=== PATIENT | female | born 1985 | race Caucasian/White ===

== ENCOUNTER 2016-12-15 18:21 | Inpatient (IN) | payer OTHER ==
[~2016-12-15] VITALS: Ht 165.1 cm; Wt 66.1 kg
[2016-12-15] VITALS (9 sets, daily range): BP systolic 94–121; BP diastolic 50–75
[2016-12-15] MEDS ORDERED: VALT500T PO (18:51)
[2016-12-15] MEDS ORDERED: PRENTAB9 PO (18:51)
[2016-12-15] MEDS ORDERED: LR 1,000 ML IV SCH (19:32)
[2016-12-15] MEDS ORDERED: LACTATED RINGER'S 1000 ML IV STA (19:32)
[2016-12-15] MEDS ORDERED: OXYTOCIN DRIP 30 UNITS in APPROPRIATE DILUENT 1 EA IV SCH (19:45)
[2016-12-15 20:46] LABS: MEAN CORPUSCULAR HEMOGLOBIN 31.8 pg (27.0-33.0); MEAN CORPUSCULAR HGB CONC 33.4 g/dl (32.0-36.5); MEAN CORPUSCULAR VOLUME 95.2 fl (80.0-96.0); PLATELET COUNT, AUTOMATED 190 10^3/uL (150-450); WHITE BLOOD COUNT 9.4 10^3/uL (4.0-10.0)
[2016-12-16] VITALS (86 sets, daily range): BP systolic 85–159; BP diastolic 50–77
[2016-12-16] MEDS: LR 1,000 ML IV SCH ×5 (03:32→19:32)
[2016-12-16] MEDS ORDERED: FENTANYL 2MCG/ML ROPIVACAINE 0.2% IN 0.9% NACL 200ML IVBAG As Ordered ONE (04:11)
[2016-12-16] MEDS ORDERED: diphenhydrAMINE INJ 50MG/ML VIAL (J1200) IV PRN (06:00)
[2016-12-16] MEDS ORDERED: EPIDURAL COMMENT XX SCH (06:00)
[2016-12-16] MEDS ORDERED: FENTANYL/ROPIVACAINE/NACL BAG 200 ML EPIDURAL SCH (06:00)
[2016-12-16] MEDS ORDERED: ONDANSETRON 4MG/2ML VIAL (J2405) IV PRN (06:00)
[2016-12-16] MEDS ORDERED: NALOXONE INJ 0.4 MG/1 ML VIAL (J2310) IV PRN (06:00)
[2016-12-16] MEDS ORDERED: LACTATED RINGER'S 1000 ML IV PRN (06:00)
[2016-12-16] MEDS ORDERED: REFRIGERATOR IV KEYS XX PRN (06:00)
[2016-12-16] MEDS ORDERED: ePHEDrine SULFATE 25 MG/5 ML(5MG/ML) SYRINGE IV PRN (06:00)
[2016-12-16] MEDS ORDERED: EPIDURAL/PCA KEYS XX PRN (06:00)
--- NOTE | 2016-12-16 09:46 | IPNPDOC ---
Text Note Date of Service The patient was seen on 12/16/16. NOTE I assumed care of Esther at 0830 this morning. She is a 31yo with SIUP at 41w1d undergoing IOL for LTG. When induction began yesterday she was 1/50/high. She has progressed on pitocin. Currently she is 5/-2. AROM performed with clear fluid noted. She is comfortable with epidural. Vitals wnl. Cat I FHRT, ctx q2-3min Will continue to titrate pitocin per protocol. Recheck in 2-4hr or earlier as indicated. Safe to proceed. VS,Fishbone, I+O VS, Fishbone, I+O Laboratory Tests 12/15/16 20:30 Red Blood Count 4.15, Mean Corpuscular Volume 95.2, Mean Corpuscular Hemoglobin 31.8, Mean Corpuscular Hemoglobin Concent 33.4, Red Cell Distribution Width 13.0 Vital Signs Date Time Temp Pulse Resp B/P (MAP) Pulse Ox O2 Delivery O2 Flow Rate FiO2 12/16/16 06:50 982.0 12/16/16 05:07 72 16 102/57 (72) I&O- Last 24 Hours up to 6 AM 12/17/16 06:00 Intake Total 1900 ml Output Total 400 ml Balance 1500 ml ADINA GARCIA MD Dec 16, 2016 09:46
--- NOTE | 2016-12-16 12:54 | IPNPDOC ---
Text Note Date of Service The patient was seen on 12/16/16. NOTE Patient comfortable with epidural. Vitals wnl. Cat I FHRT, toco ctx q2-3min SCE anterior lip/C/-1 Will recheck in 1-2hr and potentially begin pushing then Safe to proceed Dr. Adina Vargas MD VS,Marv, I+O VS, Marv, I+O Laboratory Tests 12/15/16 20:30 Red Blood Count 4.15, Mean Corpuscular Volume 95.2, Mean Corpuscular Hemoglobin 31.8, Mean Corpuscular Hemoglobin Concent 33.4, Red Cell Distribution Width 13.0 Vital Signs Date Time Temp Pulse Resp B/P (MAP) Pulse Ox O2 Delivery O2 Flow Rate FiO2 12/16/16 11:27 55 102/62 (75) 12/16/16 10:37 99.0 18 I&O- Last 24 Hours up to 6 AM 12/17/16 05:59 Intake Total 2900 ml Output Total 1200 ml Balance 1700 ml ADINA GARCIA MD Dec 16, 2016 12:54
--- NOTE | 2016-12-16 16:01 | IPNPDOC ---
Text Note Date of Service The patient was seen on 12/16/16. NOTE Patient comfortable with epidural C/C/0 at 2:20 when patient began pushing She is currently C/C/+2 with good pushing efforts Cat I FHRT Will continue pushing, anticipate Safe to proceed Dr. Adina Vargas MD VS,Marv, I+O VS, Marv, I+O Laboratory Tests 12/15/16 20:30 Red Blood Count 4.15, Mean Corpuscular Volume 95.2, Mean Corpuscular Hemoglobin 31.8, Mean Corpuscular Hemoglobin Concent 33.4, Red Cell Distribution Width 13.0 Vital Signs Date Time Temp Pulse Resp B/P (MAP) Pulse Ox O2 Delivery O2 Flow Rate FiO2 12/16/16 11:27 55 102/62 (75) 12/16/16 10:37 99.0 18 I&O- Last 24 Hours up to 6 AM 12/17/16 06:00 Intake Total 2900 ml Output Total 1200 ml Balance 1700 ml ADINA GARCIA MD Dec 16, 2016 16:01
[2016-12-16] MEDS ORDERED: OXYTOCIN DRIP 30 UNITS in APPROPRIATE DILUENT 1 EA IV SCH (17:53)
[2016-12-16] MEDS ORDERED: DIBUCAINE 1% OINTMENT 30GM TOP PRN (18:00)
[2016-12-16] MEDS ORDERED: ACETAMINOPHEN 500 MG TAB PO PRN (18:00)
[2016-12-16] MEDS ORDERED: MEASLES,MUMPS,RUBELLA VACCINE INJ (MMR-II) (90707) SC SCH (18:00)
[2016-12-16] MEDS ORDERED: RHOGAM 300 MCG (1500 IU) INJ (J2790) IM SCH (18:00)
--- NOTE | 2016-12-16 18:08 | DNPDOC ---
[facility] Delivery Note Delivery Note DATE OF DELIVERY: 12/16/16 PREDELIVERY DIAGNOSIS: 41w1d induction of labor for late term gestation POST DELIVERY DIAGNOSIS: Delivered. PROCEDURE: Spontaneous vaginal delivery FELLER SEAM OPERATOR: Dr. Adina Vargas MD ANESTHESIA: epidural ESTIMATED BLOOD LOSS: 350 mL. FINDINGS: 7 pound 7 ounce (3380g) female , Score 9/10, nuchal cord times . DELIVERY SUMMARY: Esther is a 31yo [id number] s/p uncomplicated at 41w1d after undergoing uneventful induction of labor for late term gestation. She received epidural and reached C/C/0 at which point she began pushing. head delivered OA, restituted RERE. Left anterior shoulder delivered followed by posterior shoulder and corpus. Infant vigorous with spontaneous cry, placed on maternal chest. Apgars 9/10. After approximately 1 minute, cord clamped x2 and cut by FOB. With uterine massage and traction on umbilical cord, placenta delivered spontaneously , intact with 3 vessel cord. Uterine massage performed again. Pitocin given per protocol. Inspection of perineum and vagina revealed a 2mll with skin extension down to just outside the rectum (anal sphincter completely intact- sterile glove placed over existing glove to inspect rectum and no defect of rectum noted ), also a left labial laceration. Lacerations repaired in routine fashion using 0 and 3-0 vicryl suture. Total hemostasis ensured. EBL 350ml. 800mcg cytotec placed rectally for prophylaxis against bleeding. Mom and in stable condition. ADINA GARCIA MD Dec 16, 2016 18:08
[2016-12-16] MEDS ORDERED: miSOPROStol 200 MCG TAB (S0191) PR ONE (18:15)
[2016-12-16] MEDS: IBUPROFEN 800 MG TAB PO PRN (18:50)
[2016-12-16] MEDS: DOCUSATE SODIUM 100 MG CAP PO SCH (20:51)
[2016-12-17] MEDS: LR 1,000 ML IV SCH ×2 (03:32→11:32)
[2016-12-17 06:12] VITALS: BP 105/63
[2016-12-17] MEDS: IBUPROFEN 800 MG TAB PO PRN ×2 (07:45→20:06)
[2016-12-17] MEDS: PRENATAL VITAMINS CHEWABLE TABLET PO SCH (07:45)
[2016-12-17] MEDS: DOCUSATE SODIUM 100 MG CAP PO SCH ×2 (07:45→20:06)
--- NOTE | 2016-12-17 09:11 | IPNPDOC ---
Progress Note Date of Service The patient was seen on 12/17/16 at 08:24. Progress Note Day 1 Esther is a 31 y/o [id number] s/p uncomplicated on 12/16 after IOL for LTG. She had a 2mll with skin extension down to just above her rectum. She reports pain is well managed. She has been ambulating, voiding spontaneously and tolerating regular diet without issue. She is breast feeding and baby is latching. Lochia is minimal. She denies f/c/n/v/CP/SOB. O: VSS, afebrile. Gen: A&Ox3, NAD ABD: Fundus @ U-2cm A/P: Esther is a 31 y/o [id number] s/p uncomplicated doing well on day 1. Vitals wnl, hemodynamically stable with no evidence of infection. -Routine pp care -tylenol/motrin prn pain -encourage breast feeding -likely discharge home tomorrow Dr. Adina Vargas MD [facility] VS, I&O, 24H, Fishbone Vital Signs/I&O Vital Signs Date Time Temp Pulse Resp B/P (MAP) Pulse Ox O2 Delivery O2 Flow Rate FiO2 12/17/16 06:12 98.6 61 18 105/63 (77) 99 Room Air ADINA GARCIA MD Dec 17, 2016 09:11
[2016-12-17 18:00] VITALS: BP 115/61
[2016-12-18 06:02] VITALS: BP 120/58
--- NOTE | 2016-12-18 06:32 | DS.PDOC ---
Discharge Summary General Date of Admission Dec 15, 2016 at 18:21 Date of Discharge [id number] Discharge Summary Discharge Summary Admission Diagnosis: Induction of labor for postdates Discharge Diagnosis: s/p uncomplicated spontaneous vaginal delivery Condition: stable Meds on discharge: [facility] Course: Induction uncomplicated. The pt progressed to well through labor and had an uncomplicated . Please see delivery note for details. On PPD#2, the pt had normal VS, the pt was tolerating reg diet, ambulating, pain was well controlled, minimal lochia. She was desirous of discharge and was discharged home on PPD#2 with follow up in 6-8wks in OB clinic. Undecided on contraception. Home recommendations: Nothing in vagina for 6 weeks Vital Signs/I&Os Vital Signs Date Time Temp Pulse Resp B/P (MAP) Pulse Ox O2 Delivery O2 Flow Rate FiO2 12/18/16 06:02 97.6 61 16 120/58 (78) 12/17/16 06:12 99 Room Air Discharge Medications Scheduled Multivitamins/ ( 27-0.8 mg) 1 Tab Tab, 1 TAB PO DAILY, (Reported ) Miscellaneous Medications Valacyclovir Hydrochloride (Valtrex) 500 Mg Tab, 500 MG PO, (Reported) Allergies Coded Allergies: Clarithromycin (Verified Allergy, Mild, HIVES A CHILD, 12/15/16) Penicillins (Verified Allergy, Mild, HIVES , 12/15/16) MILAGROS LINARES MD Dec 18, 2016 06:32
--- NOTE | 2016-12-18 06:34 | IPNPDOC ---
Text Note Date of Service The patient was seen on 12/18/16. NOTE PPD2 prog note States feeling well, no complaints. No heavy VB. Pain controlled. Voiding, ambulatory. Bonding well and baby feeding well. VSSAF CTAB RRR Ut at U-2, firm Ext no CCE a/p: Doing well. routine pp care. d/c today, bonding if baby not d/c'd. Sessions VS,Marv, I+O VSMarv I+O Vital Signs Date Time Temp Pulse Resp B/P (MAP) Pulse Ox O2 Delivery O2 Flow Rate FiO2 12/18/16 06:02 97.6 61 16 120/58 (78) 12/17/16 06:12 99 Room Air SESSIONS,MILAGROS Graham MD Dec 18, 2016 06:34
[2016-12-18] MEDS ORDERED: COLA100C5 PO (09:32)
[2016-12-18] MEDS ORDERED: IBUP-1114 PO (09:36)
[2016-12-18] MEDS ORDERED: ACET50TA PO (09:36)
[2016-12-18] MEDS: DOCUSATE SODIUM 100 MG CAP PO SCH (10:42)
[2016-12-18] MEDS: PRENATAL VITAMINS CHEWABLE TABLET PO SCH (10:42)
== END 2016-12-18 11:55 | disposition home or self-care (01) | DRG 775 ==
LOC: M LDI 18:21 → M OBS 12-16 19:58
PROVIDERS: ADMIT Student in an Organized Health Care Education/Training Program; ATTEND Student in an Organized Health Care Education/Training Program
PROC: 3E033VJ Introduction of Other Hormone into Peripheral Vein, Percutaneous Approach (ICD-10-PCS; 2016-12-15)
PROC: 10E0XZZ Delivery of Products of Conception, External Approach (ICD-10-PCS; principal; 2016-12-16)
PROC: 0KQM0ZZ Repair Perineum Muscle, Open Approach (ICD-10-PCS; 2016-12-16)
PROC: 10907ZC Drainage of Amniotic Fluid, Therapeutic from Products of Conception, Via Natural or Artificial Opening (ICD-10-PCS; 2016-12-16)
DX: O48.0 Post-term pregnancy (principal); Z37.0 Single live birth; Z3A.41 41 weeks gestation of pregnancy; Z88.0 Allergy status to penicillin; Z88.1 Allergy status to other antibiotic agents; Z79.899 Other long term (current) drug therapy; O70.1 Second degree perineal laceration during delivery

== ENCOUNTER → 2017-04-16 | Outpatient (REF) | payer OTHER | LOC: M SFHCLUC 20:38 | DX: R50.9 Fever, unspecified (principal) | CPT/HCPCS: 87081 ==

== ENCOUNTER → 2017-04-17 | Outpatient (REF) | payer OTHER | LOC: M SFHCLERA 02:31 | DX: R50.9 Fever, unspecified (principal) ==

== ENCOUNTER → 2018-01-22 | Outpatient (REF) | payer OTHER ==
[~2018-01-22] MED LIST: COLA100C5 PO; IBUP-1114 PO; MAPA500T17 PO; PRENTAB9 PO; VALT500T PO
== END ==
LOC: M SFHCLERA 17:24
PROVIDERS: ATTEND Physician Assistant
DX: N89.8 Other specified noninflammatory disorders of vagina (principal)
CPT/HCPCS: 81002; 81025; 87088; 87186; G0463

== ENCOUNTER → 2019-09-01 | Outpatient (REF) | payer OTHER ==
[~2019-09-01] MED LIST changes: -MAPA500T17 PO; +MAPA500T2 PO
== END ==
LOC: M SFHCLUC 07:51
PROVIDERS: ATTEND Physician Assistant
DX: Z11.8 Encounter for screening for other infectious and parasitic diseases (principal)
CPT/HCPCS: 81002; 81025; 87070; G0463